=== PATIENT | female | born 1950 | race Two or more races ===

== ENCOUNTER 2024-03-20 14:41 | Outpatient (AMB) | payer MEDICARE, MEDICAID, SELFPAY ==
--- NOTE | 2024-03-20 15:12 | PD.ORTHCLVIS ---
Vital signs 03/20/24 15:13 Height 1.57 m Height Method Stated Weight 74.417 kg Weight Measurement Method Standing Scale BMI 30.2 BP 125/78 Blood Pressure Source Automatic Cuff Blood Pressure Location Right Upper Arm Position Sitting Respiration 19 Pulse 67 Pulse Source Monitor Temp 96.2 F L Temp Source Temporal Artery Scan Pulse Oximetry (%) 94 L Oxygen Delivery Method Room Air Med/Allergies Allergies & Medications Allergies camphor [From Vicks Vaporub] Allergy (Intermediate, Verified 03/20/24 15:17) RASH eucalyptus [From Vicks Vaporub] Allergy (Intermediate, Verified 03/20/24 15:17) RASH menthol [From Vicks Vaporub] Allergy (Intermediate, Verified 03/20/24 15:17) RASH petrolatum,white [From Vicks Vaporub] Allergy (Intermediate, Verified 03/20/24 15:17) RASH turpentine oil [From Vicks Vaporub] Allergy (Intermediate, Verified 03/20/24 15:17) RASH Medication Reconciliation meloxicam 7.5 mg tablet 7.5 mg PO QDAY #45 tabs 03/20/24 [Rx] Subjective Visit Visit for: follow up visit and knee Immunization / Flu Flu Vaccine in the Last 12 Months: No Flu Vaccine Exclusion Criteria: No Exclusion Criteria History of Present Illness Chief complaint: 2 WEEK FOLLOW UP Patient is a pleasant 73-year-old female with right greater than left knee pain. This been ongoing for 4 years. She reports her knee is current hours. The pain has been affecting her quality life and happiness. She uses a cane.She has tried ibuprofen and over 8 injections in each knee. Personal History Occupation: RETIRED Red flag PMH: none Pain Pain level (0-10): 8 Pain duration: CONSTANT Pain location: inside (medial) Pain quality: aching Pain timing: night and increases with activity Associated signs & symptoms: weakness Ambulatory data Ambulatory device: cane Treatments Number of previous injections: 1 Improvement with previous injections: No Improvement with PT: No Improvement with NSAIDS: no Review of Systems Review of Systems: All systems negative unless otherwise noted in HPI. Exam Exam Patient is in no acute distress and is cooperative with the examination today. Breathing is nonlabored. In no respiratory distress. Bilateral extremities were evaluated and demonstrates sensation intact to light touch. Palpable pedal pulses are present. No significant edema is present. Bilateral hips were examined. The patient has no pain with log roll of the hips. Internal rotation to 30 degrees and external rotation to 30 degrees is painless. Negative FADIR. The left knee was examined. The left knee is in valgus alignment. Range of motion from 0-115 degrees. Knee is stable to varus and valgus as well as AP translation with <5mm. Patient has a [negative] McMurrays. There is [no] pain with patellofemoral compression and [no] crepitus noted. The knee is [tender] to palpation [medially]. The right knee was also examined. The right knee is in [varus] alignment. Range of motion from 0-120 degrees. Knee is stable to varus and valgus as well as AP translation with <5mm. Patient has a [negative] McMurrays. There is [no] pain with patellofemoral compression and [no] crepitus noted. The knee is [tender] to palpation laterally. We have an x-ray report dated 12/15/2023 from [facility] [place]. This demonstrates severe chronic degenerative changes according to the radiologist in the lateral compartment. Assessment and Plan Problem List (1) Degenerative arthritis of knee, bilateral: Status: Acute Plan: Patient is a pleasant 73-year-old female with bilateral knee pain and bilateral knee osteoarthritis. The right side is significantly worse than the left. We discussed nonoperative and operative options. Given her failure conservative treatment putting over 6 injections, we recommend a total knee replacement. The nature and purpose of the total knee replacement, alternative method(s) of treatment, the material risks involved, and the possibility of complications were fully explained to the patient. The patient does NOT have any of the following contraindications to TKA: - Active infection of the knee joint, OR - Active systemic bacteremia, OR - Active skin infection or open wound at surgical site, OR - Neuropathic arthritis, OR - Severe, rapidly progressive neurological disease, OR - Severe medical condition that makes risks of surgery outweigh the potential benefit. ?The patient was told the most common risks and complications associated with a total knee replacement include, but are not limited to: blood clots in the leg, stiffness, fatal pulmonary embolism, dislocation of the prosthesis, intraoperative and postoperative fractures of the femur or tibia, infection, failure of the prosthesis or grafting materials, complications from anesthesia, reactions to blood transfusions, postoperative leg length inequality, instability of the knee replacement, nerve damage or injury, vascular injury, delayed wound healing, infection, other injury or even . In addition, there are risks associated with anesthesia given during this operation. Also, the patient was told that after undergoing a total knee replacement there may still be persistent pain or disability. The patient was informed that the success of this operation in part depends upon the mechanical devices which are going to be implanted and that these devices can fail or malfunction, and may need to be repaired or replaced and there are no guarantees as to the longevity of this device or its parts and that it or its parts could fail prematurely. The importance of compliance with physical therapy was also discussed with the patient. The patient was also notified that during the course of surgery, there may be a need to use bone graft from donors, and that any bone graft used will be carefully screened for communicable diseases, including AIDS, hepatitis, Dean-Creutzfeldt, or other diseases, but despite the screening procedures, there is a small chance that they could contract one of these diseases. Finally, the patient was asked to follow completely and fully with all advice and recommended treatments, and that recovery and ultimate outcome are affected by their compliance with recommended treatment. We discussed the risks, benefits and treatment alternatives, and the patient is interested in proceeding with surgery. We will try to set this up as expeditiously as possible. Plan We discussed surgery in great detail. I would like to see the x-rays before proceeding with surgery Advanced Care Planning Discussion Advance care planning discussed with:: patient Office Procedures GNS Level of Care Nursing/Assessment Patient Status: Established Patient Nursing Assessment/Reassesment: Medication Reconciliation, Update PMH in EMR and Vital Signs Coordination of Care: Complex Care and Chronic Disease 1-5, Education Complex Pt/Fam, Consent,records obtained, informed consent, 1 Ins Authorization, Lab and Imaging orders and Staff clarify orders Established Patient Charge Established Patient Point Assignment: 120 Established Patient Point Charge: EP Level 4 (120-155) Past Medical History Past Medical History Have you ever been diagnosed with any of the following: Respiratory Problems Smoking: No Smoking Cessation Counseling: No Smoking Exposure: No Tobacco Use: No Clubbing: No
[2024-03-20 15:13] VITALS: BP 125/78; PULSE 67; RESP 19; TEMP 35.7; O2SAT 94; BMI 30.2
== END 2024-03-20 15:36 | disposition home or self-care (01) ==
PROVIDERS: PCP Physician Assistant Medical; Referring Provider Physician Assistant Medical; Supervising Provider Orthopaedic Surgery Adult Reconstructive Orthopaedic Surgery; Visit Provider Orthopaedic Surgery Adult Reconstructive Orthopaedic Surgery
DX: M17.0 Bilateral primary osteoarthritis of knee (principal); M25.562 Pain in left knee; M25.561 Pain in right knee
CPT/HCPCS: 99214; G0463

== ENCOUNTER → 2024-06-20 | Outpatient (CLI) | payer MEDICARE, MEDICAID, SELFPAY ==
--- NOTE | 2024-06-20 16:21 | XR_ITS ---
Examination: CT right lower extremity, without contrast. 2-D sagittal reconstructions. 2-D coronal reconstructions. 3-D reconstructions. Date and time of exam:June 20, 2024 1650 hours INDICATIONS: Diagnosis osteoarthritis right knee, knee pain 5 years CTDI: vol (mGy):11 DLP: (mGycm):823 Technique: Multiple 1.25 mm axial sections of the right lower extremity without intravenous contrast have been obtained. 2-D sagittal and coronal reconstructions have been obtained. 3-D reconstructions have been obtained. Low dose protocols were performed. One or more of the following dose reduction techniques were used; automated exposure control, adjustment of the mA and/or KV according to patient size, use of iterative reconstruction technique. Findings: Moderate osteopenia Mild narrowing right hip joint No hip fracture or hip dislocation No avascular necrosis Advanced tricompartment osteoarthritis left knee. Advanced narrowing medial lateral joint spaces with pronounced subarticular sclerosis lateral joint space Spurring of the intercondylar spines Chronic lateral subluxation of the patella at least 11 mm Moderate knee effusion IMPRESSION: Advanced tricompartment osteoarthritis left knee
== END | disposition home or self-care (01) ==
PROVIDERS: Referring Provider Orthopaedic Surgery Adult Reconstructive Orthopaedic Surgery; Visit Provider Orthopaedic Surgery Adult Reconstructive Orthopaedic Surgery
DX: M17.11 Unilateral primary osteoarthritis, right knee (principal)
CPT/HCPCS: 73700

== ENCOUNTER 2024-06-26 13:38 | Outpatient (AMB) | payer MEDICARE, MEDICAID, SELFPAY ==
[2024-06-26 13:47] VITALS: BP 122/75; PULSE 66; RESP 18; TEMP 36.3; O2SAT 95; BMI 29.8
--- NOTE | 2024-06-26 13:47 | ORTHONT_ITS ---
Vital signs 06/26/24 13:47 Height 1.57 m Height Method Stated Weight 73.482 kg Weight Measurement Method Standing Scale BMI 29.8 BP 122/75 Blood Pressure Source Automatic Cuff Blood Pressure Location Right Upper Arm Position Sitting Respiration 18 Pulse 66 Pulse Source Monitor Temp 97.4 F Temp Source Temporal Artery Scan Pulse Oximetry (%) 95 Oxygen Delivery Method Room Air Med/Allergies Allergies & Medications Allergies camphor (From Vicks Vaporub) Allergy (Intermediate, Verified 06/26/24 13:48) RASH eucalyptus (From Vicks Vaporub) Allergy (Intermediate, Verified 06/26/24 13:48) RASH menthol (From Vicks Vaporub) Allergy (Intermediate, Verified 06/26/24 13:48) RASH petrolatum,white (From Vicks Vaporub) Allergy (Intermediate, Verified 06/26/24 13:48) RASH turpentine oil (From Vicks Vaporub) Allergy (Intermediate, Verified 06/26/24 13:48) RASH Medication Reconciliation meloxicam 7.5 mg tablet 7.5 mg PO QDAY #45 tabs 03/20/24 [Rx Confirmed 06/26/24] Exam Exam Patient is in no acute distress and is cooperative with the examination today. Breathing is nonlabored. In no respiratory distress. Bilateral extremities were evaluated and demonstrates sensation intact to light touch. Palpable pedal pulses are present. No significant edema is present. Bilateral hips were examined. The patient has no pain with log roll of the hips. Internal rotation to 30 degrees and external rotation to 30 degrees is painless. Negative FADIR. The left knee was examined. The left knee is in valgus alignment. Range of motion from 0-115 degrees. Knee is stable to varus and valgus as well as AP translation with <5mm. Patient has a [negative] McMurrays. There is [no] pain with patellofemoral compression and [no] crepitus noted. The knee is [tender] to palpation [medially]. The right knee was also examined. The right knee is in [varus] alignment. Range of motion from 0-120 degrees. Knee is stable to varus and valgus as well as AP translation with <5mm. Patient has a [negative] McMurrays. There is [no] pain with patellofemoral compression and [no] crepitus noted. The knee is [tender] to palpation laterally. We have an x-ray report dated 12/15/2023 from [facility]. This demonstrates severe chronic degenerative changes according to the radiologist in the lateral compartment. Assessment and Plan Problem List (1) Degenerative arthritis of knee, bilateral: Status: Acute Plan: Patient is a pleasant 73-year-old female with bilateral knee pain and bilateral knee osteoarthritis. The right side is significantly worse than the left. We discussed nonoperative and operative options. Given her failure conservative treatment putting over 6 injections, we recommend a total knee replacement. The nature and purpose of the total knee replacement, alternative method(s) of treatment, the material risks involved, and the possibility of complications were fully explained to the patient. The patient does NOT have any of the following contraindications to TKA: - Active infection of the knee joint, OR - Active systemic bacteremia, OR - Active skin infection or open wound at surgical site, OR - Neuropathic arthritis, OR - Severe, rapidly progressive neurological disease, OR - Severe medical condition that makes risks of surgery outweigh the potential benefit. ?The patient was told the most common risks and complications associated with a total knee replacement include, but are not limited to: blood clots in the leg, stiffness, fatal pulmonary embolism, dislocation of the prosthesis, intraoperative and postoperative fractures of the femur or tibia, infection, failure of the prosthesis or grafting materials, complications from anesthesia, reactions to blood transfusions, postoperative leg length inequality, instability of the knee replacement, nerve damage or injury, vascular injury, delayed wound healing, infection, other injury or even . In addition, there are risks associated with anesthesia given during this operation. Also, the patient was told that after undergoing a total knee replacement there may still be persistent pain or disability. The patient was informed that the success of this operation in part depends upon the mechanical devices which are going to be implanted and that these devices can fail or malfunction, and may need to be repaired or replaced and there are no guarantees as to the longevity of this device or its parts and that it or its parts could fail prematurely. The importance of compliance with physical therapy was also discussed with the patient. The patient was also notified that during the course of surgery, there may be a need to use bone graft from donors, and that any bone graft used will be carefully screened for communicable diseases, including AIDS, hepatitis, Dena-Creutzfeldt, or other diseases, but despite the screening procedures, there is a small chance that they could contract one of these diseases. Finally, the patient was asked to follow completely and fully with all advice and recommended treatments, and that recovery and ultimate outcome are affected by their compliance with recommended treatment. We discussed the risks, benefits and treatment alternatives, and the patient is interested in proceeding with surgery. We will try to set this up as expeditiously as possible. Plan We discussed surgery in great detail. I would like to see the x-rays before proceeding with surgery Advanced Care Planning Discussion Advance care planning discussed with:: patient Office Procedures GNS Level of Care Nursing/Assessment Patient Status: Established Patient Nursing Assessment/Reassesment: Medication Reconciliation, Update PMH in EMR and Vital Signs Coordination of Care: Complex Care and Chronic Disease 1-5, Education Complex Pt/Fam, Consent,records obtained, informed consent, Results/Orders obtained and Staff clarify orders Established Patient Charge Established Patient Point Assignment: 95 Established Patient Point Charge: EP Level 3 (80-115) Questionairres Past Medical History Past Medical History Have you ever been diagnosed with any of the following: Respiratory Problems Smoking: No Smoking Cessation Counseling: No Smoking Exposure: No Tobacco Use: No Clubbing: No Subjective Visit Visit for: follow up visit and knee Immunization / Flu Flu Vaccine in the Last 12 Months: Yes Flu Vaccine Exclusion Criteria: Already Received History of Present Illness Chief complaint: PRE-OP RT TKA Patient is a pleasant 73-year-old female with right greater than left knee pain. This been ongoing for 4 years. She reports her knee is current hours. The pain has been affecting her quality life and happiness. She uses a cane.She has tried ibuprofen and over 8 injections in each knee. Personal History Occupation: DISABLED Red flag PMH: none BMI Counceling provided: No Pain Pain level (0-10): 5 Pain duration: ALL DAY Pain location: inside (medial), outside (lateral), anterior and posterior Pain quality: sharp, dull, aching and burning Pain timing: increases with activity Ambulatory data Ambulatory device: none Treatments Improvement with previous injections: No Improvement with PT: No Improvement with NSAIDS: no Review of Systems Review of Systems: All systems negative unless otherwise noted in HPI.
== END 2024-06-26 14:50 | disposition home or self-care (01) ==
LOC: HODSRG 13:38
PROVIDERS: PCP Physician Assistant Medical; Referring Provider Physician Assistant Medical; Supervising Provider Orthopaedic Surgery Adult Reconstructive Orthopaedic Surgery; Visit Provider Orthopaedic Surgery Adult Reconstructive Orthopaedic Surgery
DX: M17.0 Bilateral primary osteoarthritis of knee (principal); M25.562 Pain in left knee; M25.561 Pain in right knee
CPT/HCPCS: 99213; G0463

== ENCOUNTER 2024-07-02 08:20 | Day surgery (SDC) | payer MEDICARE, MEDICAID, SELFPAY ==
[2024-06-29 09:25] VITALS: BMI 20.2
[2024-06-29 11:12] LABS: Basophils % (Auto) 0 % (0-2.5); Eosinophils # (Auto) 0.1 Thou/mm3 (0.0-0.5); Eosinophils % (Auto) 2 % (0-10); Hemoglobin 11.7 g/dL (12.0-16.0); Immature Granulocytes % (Auto) 0 % (0-0); Immature Granulocytes Auto 0.02 Thou/mm3 (0.00-0.00); Lymphocytes # (Auto) 2.3 Thou/mm3 (1.0-4.8); Lymphocytes % (Auto) 30 % (10-50); Mean Corpuscular HGB Conc 33.4 g/dl (31.0-37.0); Mean Corpuscular Hemoglobin 30.7 pg (25.0-35.0); Mean Corpuscular Volume 92 fL (80-100); Monocytes # (Auto) 0.7 Thou/mm3 (0.0-0.8); Monocytes % (Auto) 9 % (0-12); Neutrophils # (Auto) 4.7 Thou/mm3 (1.8-7.7); Neutrophils % (Auto) 59 % (37-80); Nucleated Red Blood Cell % 0 /100 WBC (0); Platelet Count 268 Thou/mm3 (140-440); Red Blood Count 3.81 Miln/mm3 (4.00-5.20); White Blood Count 7.9 Thou/mm3 (3.6-11.0)
[2024-06-29 11:20] LABS: Partial Thromboplastin Time 25.9 Seconds (22.0-36.0); Prothrombin Time 10.7 Seconds (9.0-12.2)
[2024-06-29 11:33] LABS: Alanine Aminotransferase 12 U/L (10-49); Albumin, Serum 4.1 gm/dL (3.4-4.8); Albumin/Globulin Ratio 1.6 (1.2-2.2); Alkaline Phosphatase 53 U/L (46-116); Anion Gap 4 (7-16); Aspartate Amino Transferase 15 U/L (0-34); BUN/Creatinine Ratio 22 Ratio (12-20); Bilirubin,Total 0.5 mg/dL (0.3-1.2); Blood Urea Nitrogen 11 mg/dL (9-23); Calcium 8.5 mg/dL (8.3-10.6); Calcium (Corrected) 8.5 mg/dL (8.5-10.1); Carbon Dioxide 29.1 mMol/L (20.0-31.0); Chloride 100 mMol/L (98-107); Creatinine (Component) 0.5 mg/dL (0.6-1.3); Estimated Creatinine Clearance 73.4 mL/min (>60); Globulin 2.5 gm/dL (2.3-3.5); Glucose 92 mg/dL (74-106); Osmolality,Calculated 265 (275-295); Potassium 4.8 mMol/L (3.4-5.1); Sodium 133 mMol/L (136-145); Total Protein 6.6 gm/dL (5.7-8.2); eGFR > 60 See Note
[2024-07-02] VITALS (14 sets, daily range): BP systolic 119–170; BP diastolic 49–78; PULSE 56–75; RESP 15–20; TEMP 35.8–36.6; O2SAT 94–100; BMI 29.7
[2024-07-02] MEDS: PREGABALIN 75 MG CAPSULE PO (09:12)
[2024-07-02] MEDS: RINGERS LACTATED 1000 ML 1,000 ML 20 ML IV (09:12)
[2024-07-02] MEDS: MELOXICAM 7.5 MG TABLET PO ×2 (09:12→20:09)
[2024-07-02] MEDS: ACETAMINOPHEN 325 MG TABLET 650 MG PO (09:12)
--- NOTE | 2024-07-02 11:29 | XR_ITS ---
Examination: Right knee 2 views Technique one AP lateral right knee 2 views Exam date and time: July 02, 2024 1244 hours INDICATIONS: Postop knee arthroplasty. FINDINGS: Total right knee arthroplasty. Satisfactory alignment. No fracture IMPRESSION: Total right knee arthroplasty with satisfactory alignment
--- NOTE | 2024-07-02 11:53 | SUR.PHASEI ---
pt arrived to PACU via bed awake, alert, able to follow commands, breathing unlabored, dressing to right lower extremity clean, dry, and intact, report from Cheryl ENCINAS, Melanie ENCINAS, Marci ARAYA, and Dr Welch.
--- NOTE | 2024-07-02 12:21 | SUR.PHASEI ---
Report to Shira Colon RN
--- NOTE | 2024-07-02 12:21 | SUR.PHASEI ---
1221 Report received from Shira De León RN
--- NOTE | 2024-07-02 12:25 | SUR.PHASEII ---
1225 Patients family at bedside with patient
--- NOTE | 2024-07-02 13:13 | SUR.PHASEII ---
1250 XRAY complete per MD order
--- NOTE | 2024-07-02 13:47 | SUR.PHASEII ---
1340 Report given to Rashid RN, patient meets discharge criteria from recovery, awake and alert, breathing unlabored, vital signs stable, denies pain, dressing intact; no bleeding noted, patient ate a jello and applesauce; tolerated well, denies nausea, Purewick in place, no urine output noted, post spinal anesthesia anesthesia patient has dermatome sensation at L1-groin. 1347 Patient transported via bed to room 358 without incident, Rashid ENCINAS promptly in patients room, patient resting comfortably in bed with call light in reach when this marketing underwriter left patients room
--- NOTE | 2024-07-02 15:20 | XR_ITS ---
Examination: Lateral knee single view TECHNIQUE: Crosstable lateral knee single view Exam date and time: July 02, 2024 1539 hours INDICATIONS: Postop knee replacement. FINDINGS: Total right knee arthroplasty. Satisfactory alignment No fracture IMPRESSION: Total right knee arthroplasty with satisfactory alignment
[2024-07-02] MEDS: ACETAMINOPHEN 500 MG TABLET 1000 MG PO (17:47)
--- NOTE | 2024-07-02 19:47 | PC.NURSE ---
called Dr. Orr regarding patient's code status and if patient to be ambulated, per MD okay to ambulate with walker.
[2024-07-02] MEDS: ASPIRIN EC 81 MG TABEC PO (20:09)
[2024-07-02] MEDS: oxyCODONE HCL 5 MG IR TAB 10 MG PO (21:17)
--- NOTE | 2024-07-02 22:33 | PC.NURSE ---
called Dr. Orr regarding patient's pain an 8/10 in her Right Knee, patient was given oxycodone IR PO 10mg Q6hrs at 2116 and after an hour patient states pain is the same, patient educated on pain management post op. New orders received.
[2024-07-02] MEDS: oxyCODONE HCL 5 MG IR TAB PO (22:40)
[2024-07-03] VITALS: BP 113/55; PULSE 72; RESP 18; TEMP 36.4; O2SAT 95
[2024-07-03] MEDS: ACETAMINOPHEN 500 MG TABLET 1000 MG PO ×2 (00:11→06:52)
[2024-07-03 04:00] VITALS: BP 114/61; PULSE 68; RESP 20; TEMP 36.4; O2SAT 96
[2024-07-03 07:00] VITALS: BP 109/59; PULSE 63; RESP 14; TEMP 36; O2SAT 98
[2024-07-03 08:00] VITALS: BP 109/59; PULSE 63; RESP 17; TEMP 36; O2SAT 98
[2024-07-03] MEDS: PANTOPRAZOLE INJ 40 MG VIAL IV (09:12)
[2024-07-03] MEDS: ASPIRIN EC 81 MG TABEC PO (09:13)
[2024-07-03] MEDS: oxyCODONE HCL 5 MG IR TAB 10 MG PO (09:13)
[2024-07-03 11:22] VITALS: BP 122/67; PULSE 63; RESP 12; TEMP 36.6; O2SAT 96
[2024-07-03 12:00] VITALS: BP 122/67; PULSE 63; RESP 15; TEMP 36.6; O2SAT 98
--- NOTE | 2024-07-03 12:12 | PC.NURSE ---
Called and spoke to Dr. Orr regarding patient discharging. Wound dressing was removed. Glue and clear dressing noted. Wound is dry and intact. Discharged instructions given to patient's son and daughter.
--- NOTE | 2024-07-17 14:43 | PD.SUROPNT ---
Date of Procedure 07/02/24 Pre Op Diagnosis right knee osteoarthritis Post Op Diagnosis right knee osteoarthritis Procedure right total knee replacement Findings Full-thickness cartilage loss and osteophytes Procedure Description Indication: The patient is a 73 year old who has a long history of right knee pain. X-rays show degenerative arthritis involving the knee. Over the past several years the patient has had increasing pain, progressive limitation in function. He has failed conservative measures including activity modification, physical therapy, injections, anti-inflammatories, and assistive devices. After a lengthy discussion of the risks and benefits, the patient presents now for total knee replacement. The nature and purpose of the total knee replacement, alternative method(s) of treatment, the material risks involved, and the possibility of complications were fully explained to the patient. The patient was told the most common risks and complications associated with a total knee replacement include, but are not limited to blood clots in the leg, fatal pulmonary embolism, dislocation of the prosthesis, intraoperative and postoperative fractures of the femur or tibia, infection, failure of the prosthesis or grafting materials, complications from anesthesia, reactions to blood transfusions, postoperative leg length inequality, instability of the knee replacement, nerve damage or injury, vascular injury, delayed wound healing, infections, other injury or even . In addition, there are risks associated with anesthesia given during this operation, temporary or permanent numbness on the skin lateral to the incision can be a complication unique to total knee surgery, and kneeling can be painful after knee replacement surgery. Also, the patient was told that after undergoing a total knee replacement there may still be pain or disability. We discussed with the patient that we will be using a robot-assisted technology. We discussed that there is a possibility of converting to manual instrumentation. The patient was informed that the success of this operation in part depends upon the mechanical devices which are going to be implanted and that these devices can fail or malfunction, and may need to be repaired or replaced and there are no guarantees as to the longevity of this device or its part and that it or its parts could fail prematurely. Finally, the patient was asked to follow completely and fully with all advice and recommended treatments, and that recovery and ultimate outcome are affected by their compliance with recommended treatment. Surgical technique: Patient was marked and consented in the pre-operative area. The patient was brought to the operating room and placed on the operating table in a supine position. Prior to positioning, a timeout procedure was performed between the surgeon, the anesthesiologist, and the nursing staff where the patient and the operative side were identified and confirmed. After adequate general anesthetic was obtained, the right lower extremity was prepped and draped in the usual sterile fashion. A weight based dose of Cefazolin were administered within 1 hour prior to incision. The robot was preregistered and calirated before the incision. The extremity was exsanguinated with an esmarch badge and tourniquet inflated to 250mmHg. A midline incision was made. A median parapatellar arthrotomy was made. The patella was subluxed laterally. A medial release was performed to expose the medial tibia. His femoral and tibial pins were placed through an intra incisional manner for both cases. Every effort was made to ensure that the distalmost aspect of the pin was hung in the second cortex. The arrays were then tightened several times to ensure that it was fixed for the remainder of the case. Both femoral and tibial checkpoints were then placed. We then went through the registration process of the bone. We then assessed the knee deformity and attempted to correct it. We also used the robot to aid in judging laxity in both extension and flexion. Final based on laxity and alignment we changed the preoperative assessment to obtain proper proper implant positioning and to correct deformity. Attention was then placed to the tibia. We made a tibial cut using the robot ensuring that both the MCL and the patella tendon were protected with retractors. We then went to the femur and made the posterior cut followed by the anterior cut and the anterior chamfer. The bone was then removed and we made a distal femur cut and a posterior chamfer cut. We verified all cuts. A trial reduction was performed with a size [3] femoral component and a size [2] keeled tibial component. TThe patella tracked centrally, and no lateral retinacular release was necessary. The trial implants were removed. The arrays, pins, and checkpoints were all removed. We performed a verification that all pins were removed. The cut bone surfaces were lavaged. A size [3] right femoral component, a size [2] keeled tibial component were impacted into position using 2 bags of palacos. A trial insert was placed and a size [33] patella were impacted into position. The knee was placed in extension until the cement hardened. The knee was felt to be well balanced in the sagittal and coronal plane. The final [2x12] mm cruciate-substituting articular insert was impacted into the tibial tray. The knee was brought out to full extension, flexed up to 120 degrees. It was stable to varus and valgus stress and appropriately balanced in flexion and extension. The wounds were copiously irrigated following deflation of tourniquet. The medial retinaculum was reapproximated with #1 vicryl and quill. The subcutaneous tissues were closed with 0 and 2-0 interrupted Vicryl. The skin was closed with 3-0 Monofilament V loc suture. A sterile dressing was applied. The patient was transferred to a bed and brought to recovery in stable condition. The patient tolerated the procedure well. There were no intraoperative complications. Sponge and needle counts were correct times 2. As the attending surgeon, I attest I was present and performed the entire operation. Grafts/Implants Size [3] CR Femur Size [2] Tibia [12]mm poly CS 2 bags of palacos Implants [employer] Pathology / specimen Pathology comment: none Estimated Blood Loss 150 Condition Stable Disposition same day Surgeon Daniel Orr MD Surgical Staff Operation Date: 07/02/24 13:15 Case Staff Anesthesiologist: Linden Welch RN First Assistant: Joan Daniels
== END 2024-07-03 12:50 | disposition home or self-care (01) ==
LOC: S2EX 11:29 → S3NX 07-03 06:04
PROVIDERS: Anesthesiology; PCP Physician Assistant Medical; Referring Provider Orthopaedic Surgery Adult Reconstructive Orthopaedic Surgery; Visit Provider Orthopaedic Surgery Adult Reconstructive Orthopaedic Surgery
PROC: (CPT 27447; principal; 2024-07-02 13:00)
DX: M17.11 Unilateral primary osteoarthritis, right knee (principal); M25.761 Osteophyte, right knee
CPT/HCPCS: 27447; 20985; 36415; 73560; 80053; 85025; 85610; 85730; 87081; 97162; A4217; C1713; C1776; J0690; J1100; J2250; J2371; J2405; J2470; J2704; J2795; J3010; J3490; J7030; J7120; J7999; A4648; A4649; A9270; J1805; J1920

== ENCOUNTER 2024-07-20 10:13 | Outpatient (AMB) | payer MEDICARE, MEDICAID, SELFPAY ==
--- NOTE | 2024-07-20 10:32 | ORTHONT_ITS ---
Vital signs 07/20/24 10:33 Height 1.55 m Height Method Stated Weight 69.882 kg Weight Measurement Method Standing Scale BMI 29.0 BP 118/76 Blood Pressure Source Automatic Cuff Blood Pressure Location Left Upper Arm Position Sitting Respiration 18 Pulse 70 Pulse Source Monitor Temp 96.8 F Temp Source Temporal Artery Scan Pulse Oximetry (%) 100 Oxygen Delivery Method Room Air Med/Allergies Allergies & Medications Allergies camphor (From [employer] Vaporub) Allergy (Intermediate, Verified 07/20/24 10:34) RASH eucalyptus (From [employer]) Allergy (Intermediate, Verified 07/20/24 10:34) RASH menthol (From [employer]) Allergy (Intermediate, Verified 07/20/24 10:34) RASH petrolatum,white (From [employer]) Allergy (Intermediate, Verified 07/20/24 10:34) RASH turpentine oil (From [employer]) Allergy (Intermediate, Verified 07/20/24 10:34) RASH Medication Reconciliation aspirin 81 mg tablet,delayed release 81 mg PO BID #60 tabs 07/02/24 [Rx Confirmed 07/20/24] doxycycline hyclate 100 mg tablet 100 mg PO BID #14 tabs 07/02/24 [Rx Confirmed 07/20/24] gabapentin 300 mg capsule 300 mg PO .qhs #30 caps 07/02/24 [Rx Confirmed 07/20/24] oxycodone 5 mg tablet 5 mg PO Q6H PRN pain #28 tabs 07/02/24 [Rx Confirmed 07/20/24] sennosides 8.6 mg-docusate sodium 50 mg tablet (Senna-S) 1 tab-cap PO QDAY #30 tabs 07/02/24 [Rx Confirmed 07/20/24] ondansetron 4 mg disintegrating tablet 4 mg PO Q8H PRN nausea and vomiting #14 tabs 07/06/24 [Rx] pantoprazole 40 mg tablet,delayed release 40 mg PO QDAY #20 tabs 07/06/24 [Rx Confirmed 07/20/24] acetaminophen 500 mg tablet (Acetaminophen Extra Strength) 1,000 mg (2 x 500 mg) PO Q6H PRN pain #90 tabs 07/20/24 [Rx] Exam Exam Patient is in no acute distress and is cooperative with the examination today. Breathing is nonlabored. In no respiratory distress. Bilateral extremities were evaluated and demonstrates sensation intact to light touch. Palpable pedal pulses are present. No significant edema is present. Bilateral hips were examined. The patient has no pain with log roll of the hips. Internal rotation to 30 degrees and external rotation to 30 degrees is painles s. Negative FADIR. The left knee was examined. The left knee is in valgus alignment. Range of motion from 0-115 degrees. Knee is stable to varus and valgus as well as AP translation with <5mm. Patient has a [negative] McMurrays. There is [no] pain with patellofemoral compression and [no] crepitus noted. The knee is [tender] to palpation [medially]. Right knee incisions clean dry intact. Range of motion 0-100 agrees Assessment and Plan Problem List (1) Degenerative arthritis of knee, bilateral: Status: Acute Plan: Patient is a pleasant 73-year-old female with bilateral knee pain and bilateral knee osteoarthritis. Patient is doing well status post right total knee replacement. We will see her in approximately 4 weeks with new x-rays. She is doing well Plan We discussed surgery in great detail. I would like to see the x-rays before proceeding with surgery Advanced Care Planning Discussion Advance care planning discussed with:: patient Office Procedures GNS Level of Care Nursing/Assessment Patient Status: Established Patient Nursing Assessment/Reassesment: Medication Reconciliation, Update PMH in EMR and Vital Signs Coordination of Care: Complex Care and Chronic Disease 1-5, Education Complex Pt/Fam, Consent,records obtained, informed consent, Results/Orders obtained and Staff clarify orders Established Patient Charge Established Patient Point Assignment: 95 Established Patient Point Charge: EP Level 3 (80-115) MA Intake Visit Data Collection New Patient or Established: Established Patient (seen at [facility] within 3 years) Reason for Visit:: POST OP R TKA Seen by Clinical Staff ONLY (RN/MA): No Ornamental Ironworker Required: Yes PCP or OBGYN visit in last 3 months: Yes Hx Now: No Do You Feel Safe at Home: Yes Authorities Contacted: N/A Questionairres Past Medical History Past Medical History Have you ever been diagnosed with any of the following: Neurological Problems Seizures: No Cardiology Problems Congestive Heart Failure: No Respiratory Problems Chronic Obstructive Pulmonary Disease (COPD): No Smoking: No Smoking Cessation Counseling: No Smoking Exposure: No Tobacco Use: No Clubbing: No Genital/Urinary Problems Renal Disease: No Reproductive Problems Previous Pregnancies: Yes Musculoskeletal Problems Arthritis: Yes Fractures: Yes (lower back, after a fall) Endocrine Problems Diabetes Mellitus Type 1: No Diabetes Mellitus Type 2: No Blood Problems Anemia: Yes Other Problems Hospitalization: Yes (post fall, fx tail bone) Shingles: No Blood Transfusions: No Blood Transfusion Reaction: No Anesthesia Reactions: No Chicken Pox: Yes Cancer: No Subjective Visit Visit for: follow up visit, post op #2 and knee (RIGHT) Immunization / Flu Flu Vaccine in the Last 12 Months: No Flu Vaccine Exclusion Criteria: Already Received History of Present Illness Chief complaint: Right knee replacement Patient is 2 weeks status post right total knee replacement. She looks great. She has minimal pain Pain Pain level (0-10): 4 Pain duration: ON AND OFF Pain location: anterior Pain quality: aching Ambulatory data Ambulatory device: walker Treatments Improvement with previous injections: No Improvement with PT: No Improvement with NSAIDS: no Review of Systems Review of Systems: All systems negative unless otherwise noted in HPI.
[2024-07-20 10:33] VITALS: BP 118/76; PULSE 70; RESP 18; TEMP 36; O2SAT 100; BMI 29.0
== END 2024-07-20 10:39 | disposition home or self-care (01) ==
LOC: HODSRG 10:13
PROVIDERS: PCP Physician Assistant Medical; Referring Provider Physician Assistant Medical; Supervising Provider Orthopaedic Surgery Adult Reconstructive Orthopaedic Surgery; Visit Provider Orthopaedic Surgery Adult Reconstructive Orthopaedic Surgery
DX: Z47.1 Aftercare following joint replacement surgery (principal); M17.0 Bilateral primary osteoarthritis of knee; Z96.651 Presence of right artificial knee joint
CPT/HCPCS: 99213; G0463

== ENCOUNTER → 2024-08-13 | Outpatient (CLI) | payer MEDICARE, MEDICAID, SELFPAY ==
--- NOTE | 2024-08-13 | XR_ITS ---
Examination: Right knee 4 views TECHNIQUE: AP oblique lateral axial right knee 4 views Exam date and time: August 13, 2024 0948 hours INDICATIONS: Postop knee arthroplasty 6 weeks ago, knee pain FINDINGS: Total right knee arthroplasty. Satisfactory alignment. No fracture. No patellar dislocation IMPRESSION: Total right knee arthroplasty with satisfactory alignment
== END | disposition home or self-care (01) ==
PROVIDERS: PCP Physician Assistant Medical; Referring Provider Orthopaedic Surgery Adult Reconstructive Orthopaedic Surgery; Visit Provider Orthopaedic Surgery Adult Reconstructive Orthopaedic Surgery
DX: M25.561 Pain in right knee (principal); Z96.651 Presence of right artificial knee joint
CPT/HCPCS: 73564

== ENCOUNTER 2024-08-16 13:59 | Outpatient (AMB) | payer MEDICARE, MEDICAID, SELFPAY ==
[2024-08-16 14:22] VITALS: BP 126/78; PULSE 66; RESP 18; TEMP 36.3; O2SAT 95; BMI 29.4
--- NOTE | 2024-08-16 14:22 | PD.ORTHCLVIS ---
Vital signs 08/16/24 14:22 Height 1.55 m Height Method Stated Weight 70.76 kg Weight Measurement Method Standing Scale BMI 29.4 BP 126/78 Blood Pressure Source Automatic Cuff Blood Pressure Location Left Upper Arm Position Sitting Respiration 18 Pulse 66 Pulse Source Monitor Temp 97.3 F Temp Source Temporal Artery Scan Pulse Oximetry (%) 95 Oxygen Delivery Method Room Air Med/Allergies Allergies & Medications Allergies camphor (From [employer]) Allergy (Intermediate, Verified 08/16/24 14:23) RASH eucalyptus (From [employer]) Allergy (Intermediate, Verified 08/16/24 14:23) RASH menthol (From [employer]) Allergy (Intermediate, Verified 08/16/24 14:23) RASH petrolatum,white (From [employer]) Allergy (Intermediate, Verified 08/16/24 14:23) RASH turpentine oil (From [employer]) Allergy (Intermediate, Verified 08/16/24 14:23) RASH Medication Reconciliation aspirin 81 mg tablet,delayed release 81 mg PO BID #60 tabs 07/02/24 [Rx Confirmed 08/16/24] doxycycline hyclate 100 mg tablet 100 mg PO BID #14 tabs 07/02/24 [Rx Confirmed 08/16/24] gabapentin 300 mg capsule 300 mg PO .qhs #30 caps 07/02/24 [Rx Confirmed 08/16/24] oxycodone 5 mg tablet 5 mg PO Q6H PRN pain #28 tabs 07/02/24 [Rx Confirmed 08/16/24] sennosides 8.6 mg-docusate sodium 50 mg tablet (Senna-S) 1 tab-cap PO QDAY #30 tabs 07/02/24 [Rx Confirmed 08/16/24] ondansetron 4 mg disintegrating tablet 4 mg PO Q8H PRN nausea and vomiting #14 tabs 07/06/24 [Rx Confirmed 08/16/24] pantoprazole 40 mg tablet,delayed release 40 mg PO QDAY #20 tabs 07/06/24 [Rx Confirmed 08/16/24] acetaminophen 500 mg tablet (Acetaminophen Extra Strength) 1,000 mg (2 x 500 mg) PO Q6H PRN pain #90 tabs 07/20/24 [Rx Confirmed 08/16/24] Exam Exam Patient is in no acute distress and is cooperative with the examination today. Breathing is nonlabored. In no respiratory distress. Bilateral extremities were evaluated and demonstrates sensation intact to light touch. Palpable pedal pulses are present. No significant edema is present. Bilateral hips were examined. The patient has no pain with log roll of the hips. Internal rotation to 30 degrees and external rotation to 30 degrees is painless. Negative FADIR. The left knee was examined. The left knee is in valgus alignment. Range of motion from 0-115 degrees. Knee is stable to varus and valgus as well as AP translation with <5mm. Patient has a [negative] McMurrays. There is [no] pain with patellofemoral compression and [no] crepitus noted. The knee is [tender] to palpation [medially]. Right knee incisions clean dry intact. Range of motion 0-100 agrees Assessment and Plan Problem List (1) Degenerative arthritis of knee, bilateral: Status: Acute Plan: Patient is a pleasant 73-year-old female with bilateral knee pain and bilateral knee osteoarthritis. X-rays demonstrate a cemented total knee replacement good alignment position. Her x-rays look great Plan We will see her back in approximately 6 to 8 weeks continue outpatient physical therapy Advanced Care Planning Discussion Advance care planning discussed with:: patient and child Office Procedures GNS Level of Care Nursing/Assessment Patient Status: Established Patient Nursing Assessment/Reassesment: Medication Reconciliation, Update PMH in EMR and Vital Signs Coordination of Care: Complex Care and Chronic Disease 1-5, Education Complex Pt/Fam, Consent,records obtained, informed consent, Results/Orders obtained and Staff clarify orders Established Patient Charge Established Patient Point Assignment: 95 Established Patient Point Charge: EP Level 3 (80-115) MA Intake Visit Data Collection New Patient or Established: Established Patient (seen at [facility] within 3 years) Reason for Visit:: 6 WEEK TKA Seen by Clinical Staff ONLY (RN/MA): No Information Analyst Required: Yes PCP or OBGYN visit in last 3 months: Yes Hx Now: No Do You Feel Safe at Home: Yes Authorities Contacted: N/A Questionairres Past Medical History Past Medical History Have you ever been diagnosed with any of the following: Neurological Problems Seizures: No Cardiology Problems Congestive Heart Failure: No Respiratory Problems Chronic Obstructive Pulmonary Disease (COPD): No Smoking: No Smoking Cessation Counseling: No Smoking Exposure: No Tobacco Use: No Clubbing: No Genital/Urinary Problems Renal Disease: No Reproductive Problems Previous Pregnancies: Yes Musculoskeletal Problems Arthritis: Yes Fractures: Yes (lower back, after a fall) Endocrine Problems Diabetes Mellitus Type 1: No Diabetes Mellitus Type 2: No Blood Problems Anemia: Yes Other Problems Hospitalization: Yes (post fall, fx tail bone) Shingles: No Blood Transfusions: No Blood Transfusion Reaction: No Anesthesia Reactions: No Chicken Pox: Yes Cancer: No Subjective Visit Visit for: follow up visit, post op #2 and knee Immunization / Flu Flu Vaccine in the Last 12 Months: No Flu Vaccine Exclusion Criteria: No Exclusion Criteria History of Present Illness Chief complaint: Right knee replacement Patient is 6 weeks status post right total knee replacement. She looks great. She has minimal pain Pain Pain level (0-10): 0 Pain duration: ON AND OFF Pain location: anterior Pain quality: aching Associated signs & symptoms: none Ambulatory data Ambulatory device: cane Treatments Improvement with previous injections: No Improvement with PT: No Improvement with NSAIDS: no Review of Systems Review of Systems: All systems negative unless otherwise noted in HPI.
== END 2024-08-16 14:36 | disposition home or self-care (01) ==
LOC: HODSRG 13:59
PROVIDERS: Supervising Provider Orthopaedic Surgery Adult Reconstructive Orthopaedic Surgery; Visit Provider Orthopaedic Surgery Adult Reconstructive Orthopaedic Surgery
DX: M17.0 Bilateral primary osteoarthritis of knee (principal); M25.562 Pain in left knee; M25.561 Pain in right knee; Z96.651 Presence of right artificial knee joint
CPT/HCPCS: 99213; G0463

== ENCOUNTER 2024-11-13 13:25 | Outpatient (AMB) | payer MEDICARE, MEDICAID, SELFPAY ==
[2024-11-13 13:38] VITALS: BP 134/78; PULSE 65; RESP 16; TEMP 36.7; O2SAT 98; BMI 30.2
--- NOTE | 2024-11-13 13:38 | PD.ORTHCLVIS ---
Vital signs 11/13/24 13:38 Height 1.55 m Height Method Stated Weight 72.773 kg Weight Measurement Method Standing Scale BMI 30.2 BP 134/78 H Blood Pressure Source Automatic Cuff Blood Pressure Location Left Upper Arm Position Sitting Respiration 16 Pulse 65 Pulse Source Monitor Temp 98.1 F Temp Source Temporal Artery Scan Pulse Oximetry (%) 98 Oxygen Delivery Method Room Air Med/Allergies Allergies & Medications Allergies camphor (From [employer]) Allergy (Intermediate, Verified 11/13/24 13:39) RASH eucalyptus (From [employer]) Allergy (Intermediate, Verified 11/13/24 13:39) RASH menthol (From [employer]) Allergy (Intermediate, Verified 11/13/24 13:39) RASH petrolatum,white (From [employer]) Allergy (Intermediate, Verified 11/13/24 13:39) RASH turpentine oil (From [employer]) Allergy (Intermediate, Verified 11/13/24 13:39) RASH Medication Reconciliation aspirin 81 mg tablet,delayed release 81 mg PO BID #60 tabs 07/02/24 [Rx Confirmed 11/13/24] doxycycline hyclate 100 mg tablet 100 mg PO BID #14 tabs 07/02/24 [Rx Confirmed 11/13/24] gabapentin 300 mg capsule 300 mg PO .qhs #30 caps 07/02/24 [Rx Confirmed 11/13/24] oxycodone 5 mg tablet 5 mg PO Q6H PRN pain #28 tabs 07/02/24 [Rx Confirmed 11/13/24] sennosides 8.6 mg-docusate sodium 50 mg tablet (Senna-S) 1 tab-cap PO QDAY #30 tabs 07/02/24 [Rx Confirmed 11/13/24] ondansetron 4 mg disintegrating tablet 4 mg PO Q8H PRN nausea and vomiting #14 tabs 07/06/24 [Rx Confirmed 11/13/24] pantoprazole 40 mg tablet,delayed release 40 mg PO QDAY #20 tabs 07/06/24 [Rx Confirmed 11/13/24] acetaminophen 500 mg tablet (Acetaminophen Extra Strength) 1,000 mg (2 x 500 mg) PO Q6H PRN pain #90 tabs 07/20/24 [Rx Confirmed 06/24/25] Exam Exam Patient is in no acute distress and is cooperative with the examination today. Breathing is nonlabored. In no respiratory distress. Bilateral extremities were evaluated and demonstrates sensation intact to light touch. Palpable pedal pulses are present. No significant edema is present. Bilateral hips were examined. The patient has no pain with log roll of the hips. Internal rotation to 30 degrees and external rotation to 30 degrees is painless. Negative FADIR. The left knee was examined. The left knee is in valgus alignment. Range of motion from 0-115 degrees. Knee is stable to varus and valgus as well as AP translation with <5mm. Patient has a [negative] McMurrays. There is [no] pain with patellofemoral compression and [no] crepitus noted. The knee is [tender] to palpation [medially]. Right knee incisions clean dry intact. Range of motion 0-100 agrees Assessment and Plan Problem List (1) Degenerative arthritis of knee, bilateral: Status: Acute Plan: Patient is a pleasant 73-year-old female with bilateral knee pain and bilateral knee osteoarthritis. X-rays demonstrate a cemented total knee replacement good alignment position. Her x-rays look great Plan Will see her back in about 6 months for routine follow-up Advanced Care Planning Discussion Advance care planning discussed with:: patient Office Procedures GNS Level of Care Nursing/Assessment Patient Status: Established Patient Nursing Assessment/Reassesment: Medication Reconciliation, Update PMH in EMR and Vital Signs Coordination of Care: Complex Care and Chronic Disease 1-5, Education Complex Pt/Fam, Consent,records obtained, informed consent, Results/Orders obtained and Staff clarify orders Special Needs: Language special needs (ANGUILLAN ) Established Patient Charge Established Patient Point Assignment: 95 Established Patient Point Charge: EP Level 3 (80-115) MA Intake Visit Data Collection New Patient or Established: Established Patient (seen at [facility] within 3 years) Reason for Visit:: FOLLOW UP 3 MONTH POST OP RT TKA Seen by Clinical Staff ONLY (RN/MA): No Service Liaison Representative Required: Yes PCP or OBGYN visit in last 3 months: Yes Hx Now: No Do You Feel Safe at Home: Yes Authorities Contacted: N/A Questionairres Past Medical History Past Medical History Have you ever been diagnosed with any of the following: Neurological Problems Seizures: No Cardiology Problems Congestive Heart Failure: No Respiratory Problems Chronic Obstructive Pulmonary Disease (COPD): No Smoking: No Smoking Cessation Counseling: No Smoking Exposure: No Tobacco Use: No Clubbing: No Genital/Urinary Problems Renal Disease: No Reproductive Problems Previous Pregnancies: Yes Musculoskeletal Problems Arthritis: Yes Fractures: Yes (lower back, after a fall) Endocrine Problems Diabetes Mellitus Type 1: No Diabetes Mellitus Type 2: No Blood Problems Anemia: Yes Other Problems Hospitalization: Yes (post fall, fx tail bone) Shingles: No Blood Transfusions: No Blood Transfusion Reaction: No Anesthesia Reactions: No Chicken Pox: Yes Cancer: No Subjective Visit Visit for: follow up visit and post op #3 (RIGHT TKA ) Immunization / Flu Flu Vaccine in the Last 12 Months: Yes Flu Vaccine Exclusion Criteria: Already Received History of Present Illness Chief complaint: Right knee replacement Patient is 12 weeks status post right total knee replacement. She looks great. She has minimal pain Personal History Red flag PMH: none Pain Pain level (0-10): 3 Pain duration: SINCE SURGERY Pain location: anterior Pain quality: dull Pain timing: night Associated signs & symptoms: none Ambulatory data Ambulatory device: none Walking distance (minutes): 0 (NO PAIN WHILE WALKING ) Treatments Number of previous injections: 0 Improvement with previous injections: No Number of Physical Therapy sessions: 0 Improvement with PT: No Improvement with NSAIDS: n/a Review of Systems Review of Systems: All systems negative unless otherwise noted in HPI.
--- NOTE | 2024-11-13 13:44 | XR_ITS ---
Examination: Bilateral AP knees single view PA lateral axial right knee 3 views TECHNIQUE: Bilateral AP knees standing single view PA standing flexion right knee, standing lateral right knee, axial right knee total 4 views Date and time: November 13, 2024 1402 hours INDICATIONS: Status post right knee surgery 3 months ago FINDINGS: Moderate osteopenia. Total right knee arthroplasty. Satisfactory alignment. No fracture. No patellar dislocation. No loosening of the prosthetic components. Moderate narrowing medial joint space left knee IMPRESSION: Total right knee arthroplasty with satisfactory alignment
== END 2024-11-13 13:47 | disposition home or self-care (01) ==
LOC: HODSRG 13:25
PROVIDERS: Supervising Provider Orthopaedic Surgery Adult Reconstructive Orthopaedic Surgery; Visit Provider Orthopaedic Surgery Adult Reconstructive Orthopaedic Surgery
DX: M17.0 Bilateral primary osteoarthritis of knee (principal); M25.562 Pain in left knee; M25.561 Pain in right knee; Z96.651 Presence of right artificial knee joint
CPT/HCPCS: 73564; 99213; G0463

== ENCOUNTER 2025-04-25 14:07 | Outpatient (AMB) | payer MEDICARE, MEDICAID, SELFPAY ==
--- NOTE | 2025-04-25 14:51 | PD.ORTHCLVIS ---
Med/Allergies Allergies & Medications Allergies camphor (From [employer]) Allergy (Intermediate, Verified 11/13/24 13:39) RASH eucalyptus (From [employer]) Allergy (Intermediate, Verified 11/13/24 13:39) RASH menthol (From [employer]) Allergy (Intermediate, Verified 11/13/24 13:39) RASH petrolatum,white (From [employer]) Allergy (Intermediate, Verified 11/13/24 13:39) RASH turpentine oil (From [employer]) Allergy (Intermediate, Verified 11/13/24 13:39) RASH Exam Exam Patient is in no acute distress and is cooperative with the examination today. Breathing is nonlabored. In no respiratory distress. Bilateral extremities were evaluated and demonstrates sensation intact to light touch. Palpable pedal pulses are present. No significant edema is present. Bilateral hips were examined. The patient has no pain with log roll of the hips. Internal rotation to 30 degrees and external rotation to 30 degrees is painless. Negative FADIR. The left knee was examined. The left knee is in valgus alignment. Range of motion from 0-115 degrees. Knee is stable to varus and valgus as well as AP translation with <5mm. Patient has a [negative] [place]. There is [no] pain with patellofemoral compression and [no] crepitus noted. The knee is [tender] to palpation [medially]. Right knee incisions clean dry intact. Range of motion 0-100 agrees X-rays demonstrates a cemented total knee replacement in good alignment and position. There are no radiolucent lines Assessment and Plan Problem List (1) Degenerative arthritis of knee, bilateral: Status: Acute Plan: Patient is a pleasant 73-year-old female with bilateral knee pain and bilateral knee osteoarthritis. X-rays demonstrate a cemented total knee replacement good alignment position. Her x-rays look great Plan Will see her back in about 1 year for routine follow-up Advanced Care Planning Discussion Advance care planning discussed with:: patient Questionairres Past Medical History Past Medical History Have you ever been diagnosed with any of the following: Neurological Problems Seizures: No Cardiology Problems Congestive Heart Failure: No Respiratory Problems Chronic Obstructive Pulmonary Disease (COPD): No Smoking: No Smoking Cessation Counseling: No Smoking Exposure: No Tobacco Use: No Clubbing: No Genital/Urinary Problems Renal Disease: No Reproductive Problems Previous Pregnancies: Yes Musculoskeletal Problems Arthritis: Yes Fractures: Yes (lower back, after a fall) Endocrine Problems Diabetes Mellitus Type 1: No Diabetes Mellitus Type 2: No Blood Problems Anemia: Yes Other Problems Hospitalization: Yes (post fall, fx tail bone) Shingles: No Blood Transfusions: No Blood Transfusion Reaction: No Anesthesia Reactions: No Chicken Pox: Yes Cancer: No Subjective Visit Visit for: follow up visit and post op #3 (RIGHT TKA ) Immunization / Flu Flu Vaccine in the Last 12 Months: Yes Flu Vaccine Exclusion Criteria: Already Received History of Present Illness Chief complaint: Right knee replacement Patient is 9 monthsz status post right total knee replacement. She looks great. She has minimal pain Personal History Red flag PMH: none Pain Pain level (0-10): 3 Pain duration: SINCE SURGERY Pain location: anterior Pain quality: dull Pain timing: night Associated signs & symptoms: none Ambulatory data Ambulatory device: none Walking distance (minutes): 0 (NO PAIN WHILE WALKING ) Treatments Number of previous injections: 0 Improvement with previous injections: No Number of Physical Therapy sessions: 0 Improvement with PT: No Improvement with NSAIDS: n/a Review of Systems Review of Systems: All systems negative unless otherwise noted in HPI.
[2025-04-25 15:00] VITALS: BP 128/81; PULSE 67; RESP 18; TEMP 36.7; O2SAT 97; BMI 31.9
== END 2025-04-25 14:55 | disposition home or self-care (01) ==
LOC: HODSRG 14:07
PROVIDERS: Supervising Provider Orthopaedic Surgery Adult Reconstructive Orthopaedic Surgery; Visit Provider Orthopaedic Surgery Adult Reconstructive Orthopaedic Surgery
DX: Z47.1 Aftercare following joint replacement surgery (principal); Z96.651 Presence of right artificial knee joint; M25.561 Pain in right knee; M25.562 Pain in left knee; M17.12 Unilateral primary osteoarthritis, left knee
CPT/HCPCS: 99213; G0463